=== PATIENT | female | born 1990 | race Caucasian/White ===

== ENCOUNTER 2017-09-30 19:44 | Emergency (ER) | payer SELFPAY ==
[2017-09-30 20:16] VITALS: BP 117/81; TEMP 98.8
--- NOTE | 2017-09-30 23:50 | ED PDOC ---
Arrival/HPI - General Chief Complaint: Flu-like Symptoms Time Seen by Provider: 09/30/17 22:07 Historian: Patient - History of Present Illness Narrative History of Present Illness (Text): 09/30/17 22:10 27 year old female who presents to the Emergency department complaining of nasal congestion, subjective fever, productive cough with greenish-sputum, and pain with coughing for the past few days. Patient denies any chills, shortness of breath, headache, dizziness, abdominal pain, recent sick contacts, or any other complaints. Patient also complaining of post-nasal drip sensation. Time/Duration: Other (few days) Symptom Onset: Gradual Symptom Course: Unchanged Activities at Onset: Light Context: Home Past Medical History - Provider Review Nursing Documentation Reviewed: Yes - Reproductive Menopause: No - Cardiac Hx Cardiac Disorders: No - Pulmonary Hx Respiratory Disorders: No - Neurological Hx Neurological Disorder: No - HEENT Hx HEENT Disorder: No - Renal Hx Renal Disorder: No - Endocrine/Metabolic Hx Endocrine Disorders: No - Hematological/Oncological Hx Blood Disorders: No - Integumentary Hx Dermatological Disorder: No - Musculoskeletal/Rheumatological Hx Musculoskeletal Disorders: No - Gastrointestinal Hx Gastrointestinal Disorders: No - Genitourinary/Gynecological Hx Genitourinary Disorders: No - Psychiatric Hx Psychophysiologic Disorder: No Hx Substance Use: No - Anesthesia Hx Anesthesia: No Family/Social History - Physician Review Nursing Documentation Reviewed: Yes Family/Social History: Unknown Family HX Smoking Status: Never Smoked Hx Alcohol Use: No Hx Substance Use: No Allergies/Home Meds Allergies/Adverse Reactions: Allergies No Known Allergies Allergy (Verified 09/30/17 20:12) Review of Systems - Physician Review All systems were reviewed & negative as marked: Yes - Review of Systems Constitutional: Fevers (+subjective fever) ENT: Sore Throat, Rhinorrhea (+nasal congestion), Sinus Congestion, Other (+post -nasal drip) Respiratory: Cough, Sputum. absent: SOB, Wheezing Cardiovascular: absent: Chest Pain, Palpitations, Syncope Gastrointestinal: Normal. absent: Abdominal Pain, Diarrhea, Nausea, Vomiting Genitourinary Female: Normal. absent: Dysuria, Frequency, Hematuria, Urine Output Changes Musculoskeletal: absent: Back Pain, Neck Pain Skin: absent: Rash, Pruritis Neurological: absent: Headache, Dizziness Psychiatric: absent: Anxiety, Depression Physical Exam Vital Signs Reviewed: Yes Vital Signs Temp Pulse Resp BP Pulse Ox 12/18/17 20:10 98.8 F 102 H 17 117/81 100 Temperature: Afebrile Blood Pressure: Normal Pulse: Tachycardic Respiratory Rate: Normal Appearance: Positive for: Well-Appearing, Non-Toxic, Comfortable Pain Distress: None Mental Status: Positive for: Alert and Oriented X 3 - Systems Exam Head: Present: Atraumatic, Normocephalic Ears: Present: Normal, NORMAL TM, Normal Canal. No: Erythema, TM Bulging, Fluid Mouth: Present: Moist Mucous Membranes. No: Drooling, Trismus Pharnyx: Present: Normal. No: ERYTHEMA, EXUDATE, TONSILS ENLARGED, Peritonsilar Swelling, Uvular Deviation, Muffled/Hoarse Voice, Strider, Soft Palate/Uvular Edema Nose (External): Present: Atraumatic Nose (Internal): Present: Clear Mucous. No: Septal Hematoma, Epistaxis Neck: Present: Normal Range of Motion, Trachea Midline. No: Meningeal Signs, Lymphadenopathy Respiratory/Chest: Present: Clear to Auscultation, Good Air Exchange. No: Respiratory Distress, Accessory Muscle Use, Wheezes, Decreased Breath Sounds, Retracting, Rhonchi, Tachypneic, Tender to Palpation Cardiovascular: Present: Regular Rate and Rhythm, Normal S1, S2. No: Murmurs Abdomen: No: Tenderness Upper Extremity: Present: Normal ROM Lower Extremity: Present: Edema, Normal ROM Neurological: Present: GCS=15, Speech Normal Skin: Present: Warm, Dry, Normal Color. No: Rashes Lymphatic: No: Cervical Adenopathy Psychiatric: Present: Alert, Oriented x 3 Medical Decision Making ED Course and Treatment: 09/30/17 22:10 Patient is nontoxic well-appearing in no distress. cxr; no infiltrate, no effusion pt reassessment; non toxic well appearing; no distress. stable vitals. discussed results in depth with patient and . Zithromax I advised follow up with primary care physician within the next 2 days. I advised increase fluids and return if symptoms worsen persist or if new symptoms develop. Patient verbalizes understanding of discharge instructions and need for immediate followup. all aspects of this case were discussed the attending of record. IMPRESSION; cough Tylenol every 4 hours as needed for pain Zithromax one tablet once daily x4 days FLonase; 2 sprays each nostril once daily. Increase fluids Followup with primary care physician the next 2 days Return if symptoms worsen persist or if new symptoms develop - RAD Interpretation Radiology Orders: 09/30/17 22:14 CHEST TWO VIEWS (PA/LAT) [RAD] Stat - Medication Orders Current Medication Orders: Discontinued Medications Azithromycin (Zithromax) 500 mg PO STAT STA PRN Reason: Protocol Stop: 10/01/17 00:02 - Scribe Statement The provider has reviewed the documentation as recorded by the Richyibhaider Adams Provider Scribe Attestation: All medical record entries made by the Scribe were at my direction and personally dictated by me. I have reviewed the chart and agree that the record accurately reflects my personal performance of the history, physical exam, medical decision making, and the department course for this patient. I have also personally directed, reviewed, and agree with the discharge instructions and disposition. Disposition/Present on Arrival - Present on Arrival Any Indicators Present on Arrival: No History of DVT/PE: No History of Uncontrolled Diabetes: No Urinary Catheter: No History of Decub. Ulcer: No History Surgical Site Infection Following: None - Disposition Have Diagnosis and Disposition been Completed?: Yes Diagnosis: Cough Disposition: HOME/ ROUTINE Disposition Time: 00:10 Patient Plan: Discharge Patient Problems: Current Active Problems Problem Status Onset Cough Acute Condition: GOOD Discharge Instructions (ExitCare): Acute Cough (ED) Additional Instructions: Tylenol every 4 hours as needed for pain Zithromax one tablet once daily x4 days FLonase; 2 sprays each nostril once daily. Increase fluids Followup with primary care physician the next 2 days Return if symptoms worsen persist or if new symptoms develop Prescriptions: Azithromycin [Zithromax] 250 mg PO DAILY #4 tab Fluticasone Nasal [Flonase] 2 spr NS DAILY #1 spr Referrals: [facility] [place] - Follow up with primary Maynor Knowles MD [Staff Provider] - Follow up with primary Forms: [facility] (Hebrew), WORK NOTE
[2017-10-01 00:20] VITALS: PULSE 86; RESP 16; O2SAT 99
--- NOTE | 2017-10-01 08:29 | RAD ---
HISTORY: cough COMPARISON: No prior. TECHNIQUE: Chest PA and lateral FINDINGS: LUNGS: No active pulmonary disease. PLEURA: No significant pleural effusion identified. No pneumothorax apparent. CARDIOVASCULAR: Normal. OSSEOUS STRUCTURES: No significant abnormalities. VISUALIZED UPPER ABDOMEN: Normal. OTHER FINDINGS: None. IMPRESSION: No active disease.
== END 2017-10-01 00:30 | disposition home or self-care (01) ==
LOC: ED 19:44
DX: R05 Cough (principal)